=== PATIENT | male | born 1970 | race Caucasian/White ===

== ENCOUNTER → 2019-04-07 16:37 | Outpatient (CLI) | payer BC, SELFPAY ==
[2019-04-07 18:09] LABS: PSA,Total - Annual Screen 1.83 ng/mL (0.00-4.00)
== END ==
PROVIDERS: Family Provider Family Medicine; PCP Family Medicine; Referring Provider Family Medicine; Visit Provider Family Medicine
DX: Z80.42 Family history of malignant neoplasm of prostate (principal); Z12.5 Encounter for screening for malignant neoplasm of prostate
CPT/HCPCS: 36415; 84153; G0103

== ENCOUNTER → 2020-07-12 15:42 | Outpatient (CLI) | payer BC, SELFPAY ==
[2017-09-13 12:44] VITALS: BMI 25.1
--- NOTE | 2020-07-12 15:46 | RAD_ITS ---
STUDY: X-RAY - LEFT SHOULDER REASON FOR EXAM: Male, 49 years old. Pain along the top of the shoulder. No known injury. Avid golfer. TECHNIQUE: 4 view(s) of the shoulder. COMPARISON: None. FINDINGS: There is mild degenerative arthrosis of the glenohumeral articulation. Normal acromioclavicular joint. Normal acromion. There is no acute fracture, dislocation or destructive osseous pathology. Normal humeral head and visualized proximal humerus. The soft tissue structures are unremarkable. Normal visualized pulmonary apex. RAD/Shoulder min 2 Views IMPRESSION: Mild arthrosis left shoulder without acute fracture or subluxation. Electronically Signed: Mingo Decker DO at 23:56 EDT Tel [phone], Service support ,
[2020-07-12 18:23] LABS: Anion Gap 7 (5-15); BUN 14 mg/dL (7-18); BUN/Creat Ratio 14.4 RATIO (10-20); Calcium,Total 9.2 mg/dL (8.5-10.1); Chloride 105 mmol/L (98-107); Cholesterol 203 mg/dL (200); Creatinine, Serum 0.97 mg/dL (0.70-1.30); EST Glomerular Filtration Rate 88 mL/min (>60); Est Glom Filt Rate - Afr Amer 106 mL/min (>60); Glucose 88 mg/dL (74-106); High Density Lipoprotein 53 mg/dL; PSA,Total - Annual Screen 2.16 ng/mL (0.00-4.00); Sodium Level 140 mmol/L (136-145); Triglycerides 121 mg/dL; Very Low Density Lipoprotein 24 mg/dL (5-40)
== END ==
PROVIDERS: PCP Family Medicine; Referring Provider Family Medicine; Visit Provider Family Medicine
DX: Z00.00 Encounter for general adult medical examination without abnormal findings (principal); M77.8 Other enthesopathies, not elsewhere classified
CPT/HCPCS: 36415; 73030; 80048; 80061; 84153; G0103

== ENCOUNTER 2021-07-24 12:42 | Outpatient (CLI) | payer BC, SELFPAY ==
[2021-07-24 15:40] LABS: PSA,Total - Annual Screen 2.56 ng/mL (0.00-4.00)
== END 2021-07-24 23:59 | disposition home or self-care (01) ==
LOC: MTLAB 12:43
PROVIDERS: PCP Family Medicine; Referring Provider Family Medicine; Visit Provider Family Medicine
DX: Z00.00 Encounter for general adult medical examination without abnormal findings (principal); Z12.5 Encounter for screening for malignant neoplasm of prostate
CPT/HCPCS: 36415; 84153; G0103

== ENCOUNTER → 2021-10-15 | Outpatient (CLI) | payer BC, SELFPAY ==
--- NOTE | 2021-10-15 | IMM_PTH ---
PATIENT: JINA KWON LOC: [facility] U#:[id number] AGE/SX: 51/M ROOM: RE10/15/[address]: Dr. Mukund Douglas MD : 1970 BED: DIS: 10/15/2021 SPEC #: [id number] RECD: 10/17/21 12:50 STATUS: JERRY REQ #: [id number] FRANCHESKA: 10/15/21 00:[address]: Mukund Douglas DEPT: IMMUNOHISTOCHEMISTRY RECD BY: Mylene Myers ENTERED: 10/17/21 12:52 SP TYPE: IMMUNO OTHR DR: Dr. La López MD Tissues: A - PROSTATE RIGHT C - PROSTATE RIGHT D - PROSTATE LEFT E - PROSTATE LEFT Procedures: 34BE12 (add) P40 (add) 34BE12 (initial) PHYSICIAN & INSTITUTION [place] [phone] SPECIMEN INFORMATION: Tissue Source: A - Right apex, C - Right base, D - Left apex, E - Left mid Clinical Info: Elevated PSA Specimen Number: [id number] A, C, D & E CPT code: 12492, 78372 x7 METHODOLOGY: Deparaffinized sections of prefer/formalin-fixed tissue or PAP/DQ stained slides are incubated with monoclonal/polyclonal antibodies/oligonucleotide probes. Localization is made via biotin free immunoperoxidase method. Appropriate controls are performed and reacted as expected. Results on target cell population are indicated in the following table: RESULTS: ANTIBODY / CLONE RESULT Block A P40 (BC28) negative 34BE12 (34BE12) negative Block C P40 (BC28) positive 34BE12 (34BE12) positve Block D P40 (BC28) negative 34BE12 (34BE12) negative Block E P40 (BC28) negative 34BE12 (34BE12) negative These tests were developed and their performance characteristics determined by [facility]. They may not have been cleared or approved by the U.S. Food and Drug Administration. The FDA has determined that such clearance or approval is not necessary. The above immunohistochemical/dualISH markers are ordered and reviewed by the Pathologist. INTERPRETATION: A. Right prostate, apex, core biopsy: Focal atypical small acinar proliferation (VANGIE). C. Right prostate, base, core biopsy: Negative for malignancy. D. Left prostate, apex, core biopsy: Focal atypical small acinar proliferation (VANGIE). E. Left prostate, mid, core biopsy: Focal atypical small acinar proliferation (VANGIE). SJ:estiven 10/18/2021 Case has been reviewed in consultation with Dr. Brunson who concurs with the above diagnosis. IDC:AM
--- NOTE | 2021-10-15 08:00 | PROSBIL_PTH ---
PATIENT: JINA KWON LOC: [facility] U#:[id number] AGE/SX: 51/M ROOM: RE10/15/[address]: Dr. Mukund Douglas MD : 1970 BED: DIS: 10/15/2021 SPEC #: [id number] RECD: 10/15/21 16:21 STATUS: JERRY VIVAR #: [id number] FRANCHESKA: 10/15/21 08:[address]: Mukund Douglas DEPT: SURGICAL PATHOLOGY RECD BY: Dee Dee Shafer ENTERED: 10/16/21 07:11 SP TYPE: PROST BX KIRTI DR: Dr. La López MD Tissues: A - PROSTATE RIGHT B - PROSTATE RIGHT C - PROSTATE RIGHT D - PROSTATE LEFT E - PROSTATE LEFT F - PROSTATE LEFT Procedures: PROSTATE BX HEADER OPERATION: Prostate biopsy PRE-OP DIAGNOSIS: R97.20 TISSUE SUBMITTED: A - Right apex, B - Right mid, C - Right base, D - Left apex, E - Left mid, F - Left base MICROSCOPIC DIAGNOSIS A. Right prostate, apex, core biopsy: Focal atypical small acinar proliferation (VANGIE). See comment. B. Right prostate, mid, core biopsy: Prostatic tissue, negative for malignancy. C. Right prostate, base, core biopsy: Prostatic tissue, negative for malignancy. See comment. D. Left prostate, apex, core biopsy: Focal atypical small acinar proliferation (VANGEI). See comment. E. 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 See comment. F. Left prostate, base, core biopsy: Prostatic tissue, negative for malignancy. SJ:estiven 10/17/2021 COMMENT A, C, D & E - Immunohistochemistry ([id number]) supports the above diagnosis. Case has been reviewed in consultation with Dr. Brunson who concurs with the above diagnosis. IDC:AM MICROSCOPIC DESCRIPTION Slides are reviewed. GROSS DESCRIPTION A - Received is one container designated prostate, right apex. The specimen consists of two elongated fragments of light cisneros-white soft tissue each measuring 1.5 cm in length and 0.1 cm in diameter. The specimen is totally submitted in one cassette. B - Received is one container designated prostate, right mid. The specimen consists of two elongated fragments of light cisneros-white soft tissue measuring 0.8 and 1.5 cm in length and 0.1 cm in diameter. The specimen is totally submitted in one cassette. C - Received is one container designated prostate, right base. The specimen consists of two elongated fragments of light cisneros-white soft tissue measuring 0.7 and 1.2 cm in length and 0.1 cm in diameter. The specimen is totally submitted in one cassette. D - Received is one container designated prostate, left apex. The specimen consists of two elongated fragments of light cisneros-white soft tissue measuring 1.2 and 1.5 cm in length and 0.1 cm in diameter. The specimen is totally submitted in one cassette. E - Received is one container designated prostate, left mid. The specimen consists of two elongated fragments of light cisneros-white soft tissue each measuring 1.5 cm in length and 0.1 cm in diameter. The specimen is totally submitted in one cassette. F - Received is one container designated prostate, left base. The specimen consists of two elongated fragments of light cisneros-white soft tissue each measuring 1.5 cm in length and 0.1 cm in diameter. The specimen is totally submitted in one cassette. / SJ:rg 10/16/2021 TC:5 CPT: 82122 x6
== END | disposition home or self-care (01) ==
LOC: LABSPEC 16:29
PROVIDERS: PCP Family Medicine; Visit Provider Urology
DX: N42.32 Atypical small acinar proliferation of prostate (principal); R97.20 Elevated prostate specific antigen [PSA]
CPT/HCPCS: 88305; 88341; 88342; G0416

== ENCOUNTER 2022-03-20 16:13 | Outpatient (CLI) | payer BC, SELFPAY | END 2022-03-20 23:59 | disposition home or self-care (01) | LOC: MTLAB 16:14 | PROVIDERS: PCP Family Medicine; Referring Provider Registered Nurse; Visit Provider Registered Nurse | DX: R97.20 Elevated prostate specific antigen [PSA] (principal) | CPT/HCPCS: 36415; 84153 ==

== ENCOUNTER 2022-04-01 20:37 | Emergency (ER) | payer BC, SELFPAY ==
[2022-04-01 20:38] VITALS: PULSE 76; RESP 18; TEMP 36.6; O2SAT 97; BMI 26.6
[2022-04-01 20:42] VITALS: BP 109/73
--- NOTE | 2022-04-01 21:14 | EKG12_ITS ---
Test Reason : SYNCOPE Blood Pressure : / mmHG Vent. Rate : 060 BPM Atrial Rate : 060 BPM P-R Int : 134 ms QRS Dur : 100 ms QT Int : 398 ms P-R-T Axes : 068 048 034 degrees QTc Int : 398 ms Normal sinus rhythm Normal ECG Confirmed by MELVIN OWENS, RYDER ([id number]), publication editor HEMALATHA ANDRADE ([id number]) on 04/03/2022 11:53:45 AM Referred By: Confirmed By:RYDER CHARLES MD
[2022-04-01 21:16] VITALS: O2SAT 98
--- NOTE | 2022-04-01 21:19 | CT_ITS ---
INDICATION: seizure EXAMINATION: CT BRAIN - CT Head or Brain W/O Contrast Injection TECHNIQUE: Multiple axial images were obtained of the head without intravenous contrast. A radiation dose optimization technique was used for this scan. IV Contrast dosage and agent: None. COMPARISON: None FINDINGS: BRAIN PARENCHYMA: No intra- or extra-axial hemorrhage. No evidence of acute infarct. No intracranial mass or mass effect. There is preservation of the ramirez/white matter interface. Posterior fossa structures are unremarkable. CSF SPACES: Appropriate for age. No hydrocephalus. Basal cisterns are patent. CALVARIUM, SKULL BASE, PARANASAL SINUSES AND MASTOID AIR CELLS: Clear. No discrete lytic or blastic abnormalities. ORBITS: Both globes, extraocular muscles, optic nerves and retrobulbar fat appear unremarkable. CT/Brain/Head without Contrast IMPRESSION: No acute intracranial findings. Electronically Signed: Gal Doe MD at 22:09 EST ,
--- NOTE | 2022-04-01 21:20 | EDS_ITS ---
HPI History of Present Illness Chief Complaint: Syncope Detail of Chief Complaint: Passed out possible seizure. Informant: patient and spouse/S.O. Onset/Context/Timing Onset: Today Context: Sudden Onset Timing: Intermittent Current Severity: Gone Maximum Severity: Moderate Narrative Narrative: 51-year-old male no past medical or surgical history. Currently on no medications. Said he was sitting at the kitchen table he felt he might pass out when his came up to him she said he turned his head and his arm was shaking like he was having a seizure him to the ground. She stated maybe 10 to 20 seconds. He has never had a seizure before. Before the event he was not complaining of any headache nor chest pain or shortness of breath. No abdominal pain. Has not been recently ill. He is on a pretty strict diet rainout try to get in shape. He is lost 11 pounds over the last month and a half. He had not eaten dinner yet today. Denies any recent head injury. Prior similar symptoms: Yes Recent Illness/Hospitalization: No PFSH PFSH Medical History Anxiety Back pain Former smoker Home Medications naproxen sodium 220 mg capsule (Aleve) 220 mg PO BID 09/13/17 [History Last Taken Unknown] hydrocodone 7.5 mg-ibuprofen 200 mg tablet 1 tab PO DAILY PRN Pain 04/01/22 [History Last Taken Unknown] kehplsjgzwhm-wuhgzyrs-hcbguj tablet (Multivitamin 50 Plus tablet) 1 tab PO DAILY 04/01/22 [History Last Taken Unknown] Allergy/AdvReac Type Severity Reaction Status Date / Time cigarette smoke Allergy Unknown Verified 04/01/22 20:38 house dust mite Allergy Unknown Verified 04/01/22 20:38 Family History Father Cancer Surgical History H/O prostate biopsy Hx of knee surgery Social History Smoking Status: Former smoker alcohol intake: current alcohol intake frequency: 0-2 drinks per day ROS ROS ED ROS Narrative Denies recent illness. No palpitations. No chest pain. No headache. No abdominal pain. Review of Systems ROS Unobtainable: Denies due to encephalopathy Constitutional Constitutional ED: Denies chills or fever(s) Eyes Eyes: Denies blurry vision ENT ENT ED: Denies ear pain Cardiovascular Cardiovascular: Denies chest pain Respiratory/Chest Respiratory/Chest: Denies cough or dyspnea Gastrointestinal Gastrointestinal: Denies abdominal pain Genitourinary Genitourinary ED: Denies dysuria or hematuria Musculoskeletal Musculoskeletal: Denies arthralgias Integumentary Denies abscess or Abrasions Neurologic Neurologic: Denies headache(s) Psychiatric Psychiatric: Denies anxiety or depression Endocrine Endocrinology: Denies cold intolerance Hematologic/Lymphatic Hematologic/Lymphatic: Reports none Allergic/Immunologic Allergic/Immunologic ED: Denies mouth swelling or urticaria EXAM Physical Exam Narrative Exam Narrative: Well-appearing 51-year-old male. at bedside. Vital signs stable afebrile. Pulse ox 90% on room air no signs hypoxia. He clinically looks well. He does not look septic nor toxic nor dehydrated. Currently he is not postictal. He is awake and alert. H EENT exam unremarkable atraumatic. Pupils round reactive light. No facial droop. No trauma. Dentition intact. Tongue no bite avendano. Neck nontender no lymphadenopathy. No meningismus. Lungs clear to auscultation bilaterally. Heart regular rhythm no murmur. Abdomen soft nontender. Chest wall nontender. Abdomen soft nontender. Moving all 4 extremities. 5-5 borematic operator strength. Dorsi plantarflexion intact. Back nontender. Skin normal. Neurologic exam normal. NIH 0. He noticed day month and year. He knows where he is at. He is acting appropriately. He has normal speech. Const Vital Signs: 04/01/22 20:38 04/01/22 20:42 04/01/22 21:16 Temperature 97.9 F Temperature Source Temporal Pulse Rate 76 Respiratory Rate 18 Blood Pressure 109/73 Blood Pressure Mean 85 Pulse Ox 97 98 Oxygen Delivery Method Room Air Room Air Positive well nourished and well developed; Negative for obese, cachectic, contractures or unkempt General Appearance ED: well developed and NAD; Negative for unkempt, cachectic, contractures, cyanotic, diaphoretic or pallor Nutritional Appearance: Negative for cachectic or obese HEENT Reports moist mucous membranes; Denies dry mucous membranes Negative for trauma or tenderness Mouth ED: No dry mucous membranes Mouth: No dry mucous membranes Eyes PERRL and EOMs intact bilaterally General Eye ED: Negative for pale conjunctiva or scleral icterus Neck no lymphadenopathy, supple and no JVD General: Negative for tenderness Lymph Lymphatic: Negative for other Chest Wall inspection of chest normal and palpation of chest normal Chest: Negative for other Resp normal respiratory effort and clear to auscultation bilaterally Effort and Inspection: Negative for retractions Auscultation: Negative for rales, rhonchi or wheezes Cardio regular rate, regular rhythm, S1 normal heart sound, S2 normal heart sound and no murmurs Palpation: Negative for palpable S3 Rate: Negative for bradycardia Rhythm: Negative for abnormal rhythm GI normal to inspection, nondistended, normoactive bowel sounds, non-tender, non- distended and no masses Inspection: Negative for abdominal distention Palpation: soft; Negative for tender, guarding, splenomegaly, mass or rebound tenderness present Back/Spine no CVA tenderness General Back: Negative for CVA tenderness or other Cervical Spine: Negative for cervical spine tenderness Thoracic Spine / Upper Back: Negative for thoracic spinal tenderness or paraspinal muscle tenderness Lumbar Spine / Lower Back: Negative for lumbar spinal tenderness Extremity normal to inspection General Extremety ED: Negative for edema or tenderness General Extremity: Negative for edema Neuro oriented x3, CN's II-XII intact bilaterally and no sensory deficits noted Sensorium / Orientation: alert; Negative for orientation impaired, lethargic or stuporous Motor Exam: strength 5/5 throughout Psych mental status grossly normal Appearance: Negative for unkempt Attitude: No agitated Mood & Affect: Negative for depressed, anxious or tearful Skin no rashes or lesions noted, no wounds and skin turgor normal General Skin Exam: elasticity normal; Negative for jaundice or pallor Lesions: No lesion noted Rashes: No rashes noted Trauma: Negative for abrasion Wounds: Negative for wounds noted MDM MDM MDM Narrative Medical decision making narrative: 51-year-old male with a syncopal episode may or may not have had a seizure. It lasted very briefly. This could have been a myoclonic jerk also. His exam is benign. Repeat exam patient doing well at 10:45 PM. Lengthy discussion with his . He most likely had a syncopal episode. They both understand we do not have a specific cause. I discussed with him admission for further observation and cardiac monitoring and he does not want to stay. They will follow-up with his primary care physician. Repeat exam is normal. They understand the risk of a serious or fatal dysrhythmia. Lab Data Attestation: I reviewed the patient's lab results. Lab results narrative: CBC White count 1.4. H&H 14 and 42. Platelets 371. Electrolytes potassium 3.1 gap of 7 normal BUN 12 creatinine 1.1. Glucose 110. Troponin 12 glucose 94. Chest x-ray no acute process. CAT scan of his brain is read by the radiologist no acute process. Labs: Laboratory Results - last 24 hr 04/01/22 04/01/22 04/01/22 20:30 20:30 21:25 WBC 11.4 H RBC 4.41 L Hgb 14.2 Hct 42.7 MCV 96.8 H MCH 32.2 H MCHC 33.3 RDW Std Deviation 46.9 H RDW Coeff of Ilana 13.2 Plt Count 371 MPV 9.5 Immature Gran % (Auto) 0.500 Neut % (Auto) 50.0 Lymph % (Auto) 39.1 [place] % (Auto) 8.0 Eos % (Auto) 1.6 Baso % (Auto) 0.8 Absolute Neuts (auto) 5.7 Absolute Lymphs (auto) 4.44 Nucleated RBC % 0 Sodium 140 Potassium 3.3 L Chloride 105 Carbon Dioxide 28.0 Anion Gap 7 BUN 12 Creatinine 1.11 Estim Creat Clear Calc 79.62 Est GFR (MDRD) Af Amer 90 Est GFR (MDRD) Non-Af 74 BUN/Creatinine Ratio 10.8 Glucose 110 H Calcium 9.0 Troponin I High Sens 12 POC Glucose 94 Radiography Chest X-Ray - ED: 1 View, Read by ED Physician, Read by Radiologist, Heart, Lungs, Mediastinum, Bony Structures, No Acute Disease and Chronic Changes Diagnostic Testing: Clinical Impression(s) from Imaging Studies Brain CT 04/01/22 21:19 IMPRESSION: No acute intracranial findings. Electronically Signed: Gal Doe MD at 22:09 EST , Chest X-Ray 04/01/22 21:30 IMPRESSION: No radiographic evidence of acute cardiopulmonary disease. Electronically Signed: Gal Doe MD at 22:16 EST , Chest x-ray, portable, single view shows no acute abnormality. Normal cardiac silhouette mediastinum. CAT scan read by the radiologist and reviewed by me shows no acute abnormality. Rhythm Strip Rhythm Strip: Sinus Rhythm Rate: 60 Ectopy: None EKG Initial EKG: Attestation: I personally reviewed and interpreted this EKG as follows: Interpretation: Sinus Rhythm and No Acute Injury Pattern Comments: Normal sinus rhythm rate of 60 no acute signs of DC, ischemia or dysrhythmia. Normal EKG. Discharge Plan Triage Chief Complaint: Syncope ED Provider: Andre Schulz Dx/Rx/DC Orders Clinical Impression: Syncope Instructions: Causes of Syncope Prescriptions: No Action naproxen sodium [Aleve] 220 mg capsule 220 mg PO BID hydrocodone-ibuprofen 7.5-200 mg tablet 1 tab PO DAILY PRN (Reason: Pain) Label Comments: TAKE 1 TABLET BY MOUTH 4 TIMES DAILY FOR 7 DAYS Multivitamin 50 Plus Tablet 1 tab PO DAILY Primary Care Provider: La López Referrals: La López MD [Primary Care Provider] - As soon as possible Activity Restrictions/Additional Instructions: Plenty of fluids and rest. Make sure you eat something before you go to bed. No work or driving tomorrow. Call and follow-up with your primary care physician Dr. La López. Telemetry was seen in the emergency department she can see all of her test results. They may consider putting you on an event or Holter monitor to watch your heart rhythm. Return if worse. Disposition Disposition: Home, Self Care
[2022-04-01 21:26] LABS: Absolute Lymphocyte Count 4.44 X10^3/uL (0.83-4.51); Absolute Neutrophil Count 5.7 X10^3/uL (2.0-7.7); Basophil# 0.09 X10^3/uL; Basophil% 0.8 % (0-1); Eosinophil# 0.18 X10^3/uL; Eosinophils% 1.6 % (0-5); Hematocrit 42.7 % (40-54); Hemoglobin 14.2 g/dL (13.0-16.5); Lymphocyte # 4.44 X10^3/ul (0.83-4.51); Lymphocyte % 39.1 % (19-41); Mean Corp Hgb Conc 33.3 g/dL (32-36); Mean Corpuscular Hgb 32.2 pg (27.0-32.0); Mean Corpuscular Volume 96.8 fL (80-94); Mean Platelet Vol. 9.5 fl (6.2-12.0); Monocyte# 0.91 X10^3/uL; NRBC Flagged by Analyzer 0 % (0-5); Neutrophil # 5.68 X10^3/uL (2.7-7.7); Platelet Count 371 K/mm3 (150-450); RBC Distribution Width CV 13.2 % (11.6-14.6); RBC Distribution Width SD 46.9 fl (35.1-43.9); Red Blood Count 4.41 M/mm3 (4.6-6.2); White Blood Count 11.4 K/mm3 (4.4-11.0)
--- NOTE | 2022-04-01 21:30 | RAD_ITS ---
INDICATION: chest pain EXAMINATION/TECHNIQUE: X-RAY - portable upright AP chest x-ray COMPARISON: 03/13/2015 FINDINGS: LINES/DEVICES: None. LUNGS: No consolidation, edema or effusion. No pneumothorax. MEDIASTINUM AND CARDIOVASCULAR STRUCTURES: Cardiac silhouette not enlarged. Central airways and mediastinal contour are unremarkable. BONES AND SOFT TISSUES: Unremarkable. RAD/Chest 1 View (Portable) IMPRESSION: No radiographic evidence of acute cardiopulmonary disease. Electronically Signed: Gal Doe MD at 22:16 EST ,
[2022-04-01 21:45] LABS: Bedside Glucose 94 mg/dL (74-106)
[2022-04-01 21:53] LABS: Anion Gap 7 (5-15); BUN 12 mg/dL (7-18); BUN/Creat Ratio 10.8 RATIO (10-20); Chloride 105 mmol/L (98-107); Creatinine, Serum 1.11 mg/dL (0.70-1.30); EST Glomerular Filtration Rate 74 mL/min (>60); Est Glom Filt Rate - Afr Amer 90 mL/min (>60); Estimated Creatinine Clearance 79.62 ml/min; Glucose 110 mg/dL (74-106); Potassium 3.3 mmol/L (3.5-5.1); Sodium Level 140 mmol/L (136-145); Troponin-I HS 12 pg/mL (3.0-78.0)
[2022-04-01 23:31] VITALS: BP 136/57; PULSE 76; RESP 16; RESP 24; O2SAT 97
== END 2022-04-01 23:34 | disposition home or self-care (01) ==
PROVIDERS: Emergency Provider Emergency Medicine; PCP Family Medicine; Visit Provider Emergency Medicine
DX: R55 Syncope and collapse (principal); Z87.891 Personal history of nicotine dependence
CPT/HCPCS: 70450; 71045; 80048; 82962; 84484; 85025; 93005; 99285

== ENCOUNTER → 2022-07-15 | Outpatient (CLI) | payer BC, SELFPAY ==
--- NOTE | 2022-07-15 15:05 | ECHOD_ITS ---
Reason For Study: SYNCOPE Procedure This was a 2D Doppler, Color Flow transthoracic echocardiogram. Exam performed in department. Left Ventricle Normal LV size. Left ventricular systolic function is normal. The estimated ejection fraction is 65 %. No regional wall motion abnormalities noted. Right Ventricle Normal RV size. Normal systolic function. Atria Normal left atrium. Normal right atrium. Mitral Valve Normal mitral valve. Mild (1+) eccentric mitral valve insufficiency. Tricuspid Valve Normal tricuspid valve. Mild (1+) tricuspid valve insufficiency. Pulmonary artery systolic pressure is 26 mmHg. Aortic Valve Trisinus/trileaflet aortic valve. Pulmonic Valve Normal pulmonic valve. Great Vessels Normal aortic root. The pulmonary artery is normal size. Normal inferior vena cava. Pericardium/Pleural No pericardial effusion. MMode/2D Measurements & Calculations LVIDd: 4.9 cm IVSd: 0.90 cm Ao root diam: 3.1 cm LVIDs: 3.0 cm LVPWd: 1.0 cm RVDd: 3.3 cm FS: 37.9 % LAV(MOD-bp): 35.5 ml LVAd ap4: 31.2 cm2 SV(MOD-sp4): 68.8 ml LAV(MOD-bp) Indexed: 17.6 ml/m2 LVLd ap4: 7.7 cm LAV(MOD-sp2): 32.1 ml EDV(MOD-sp4): 105.5 ml LAV(MOD-sp4): 36.4 ml EDV(sp4-el): 107.0 ml LVAs ap4: 16.4 cm2 LVLs ap4: 6.1 cm ESV(MOD-sp4): 36.8 ml ESV(sp4-el): 37.3 ml EF(MOD-sp4): 65.1 % EF(sp4-el): 65.1 % SV(sp4-el): 69.7 ml LA A4 area: 15.1 cm2 LA dimension(2D): 3.5 cm RA A4 area: 14.2 cm2 Time Measurements MV dec time: 0.20 sec Doppler Measurements & Calculations MV E max sunday: 73.1 cm/sec Lat Peak E' Sunday: 14.0 cm/sec Med Peak E' Sunday: 11.8 cm/sec MV A max sunday: 69.3 cm/sec E/E' lat: 5.2 E/E' med: 6.2 MV E/A: 1.1 Ao V2 max: 144.6 cm/sec LV V1 max: 99.6 cm/sec PA V2 max: 119.9 cm/sec Ao max P.4 mmHg LV V1 max P.0 mmHg TR max sunday: 241.4 cm/sec TR max P.3 mmHg ECHO/Echo Complete Interpretation Summary Normal LV size. Left ventricular systolic function is normal. The estimated ejection fraction is 65 %. Mild (1+) eccentric mitral valve insufficiency. Mild (1+) tricuspid valve insufficiency. Ordering Physician: Juanjose Stahl Referring Physician: WIL GALLEGOS Performed By: Patricia Quintanilla RDCS
== END | disposition home or self-care (01) ==
PROVIDERS: PCP Family Medicine; Visit Provider Internal Medicine Cardiovascular Disease
DX: R55 Syncope and collapse (principal)
CPT/HCPCS: 93306

== ENCOUNTER → 2022-07-26 | Outpatient (CLI) | payer BC, SELFPAY ==
[2022-07-26 13:20] LABS: Cholesterol 205 mg/dL (200); High Density Lipoprotein 58 mg/dL; Triglycerides 62 mg/dL; Very Low Density Lipoprotein 12 mg/dL (5-40)
== END | disposition home or self-care (01) ==
PROVIDERS: PCP Family Medicine; Referring Provider Family Medicine; Visit Provider Family Medicine
DX: Z00.00 Encounter for general adult medical examination without abnormal findings (principal)
CPT/HCPCS: 36415; 80061

== ENCOUNTER 2022-08-30 10:47 | Outpatient (CLI) | payer BC, SELFPAY | END 2022-08-30 23:59 | disposition home or self-care (01) | LOC: MTLAB 10:48 | PROVIDERS: PCP Family Medicine; Referring Provider Family Medicine; Visit Provider Family Medicine | DX: Z00.00 Encounter for general adult medical examination without abnormal findings (principal); Z80.42 Family history of malignant neoplasm of prostate | CPT/HCPCS: 36415; 84153; G0103 ==

== ENCOUNTER → 2022-12-26 | Outpatient (CLI) | payer BC, SELFPAY ==
[2022-12-26 17:47] LABS: Erythrocyte Sedimentation Rate 14 mm/hr (0-20)
[2022-12-26 17:49] LABS: Absolute Lymphocyte Count 2.59 X10^3/uL (0.83-4.51); Absolute Neutrophil Count 4.8 X10^3/uL (2.0-7.7); Basophil# 0.09 X10^3/uL; Basophil% 1.1 % (0-1); Eosinophil# 0.17 X10^3/uL; Hematocrit 49.6 % (40-54); Hemoglobin 16.1 g/dL (13.0-16.5); Lymphocyte # 2.59 X10^3/ul (0.83-4.51); Lymphocyte % 30.7 % (19-41); Mean Corp Hgb Conc 32.5 g/dL (32-36); Mean Corpuscular Hgb 32.3 pg (27.0-32.0); Mean Corpuscular Volume 99.6 fL (80-94); Mean Platelet Vol. 9.6 fl (6.2-12.0); Monocyte% 8.3 % (0-10); NRBC Flagged by Analyzer 0 % (0-5); Neutrophil # 4.84 X10^3/uL (2.7-7.7); Neutrophil % 57.4 % (47-70); Platelet Count 405 K/mm3 (150-450); RBC Distribution Width CV 12.8 % (11.6-14.6); RBC Distribution Width SD 47.5 fl (35.1-43.9); Red Blood Count 4.98 M/mm3 (4.6-6.2); White Blood Count 8.4 K/mm3 (4.4-11.0)
[2022-12-26 18:33] LABS: Amylase 88 U/L (25-115); Lipase 42 U/L (13-75)
== END | disposition home or self-care (01) ==
LOC: MTLAB 14:50
PROVIDERS: PCP Family Medicine; Visit Provider Family Medicine
DX: R10.9 Unspecified abdominal pain (principal); R19.7 Diarrhea, unspecified
CPT/HCPCS: 36415; 82150; 83690; 85025; 85652

== ENCOUNTER 2022-12-28 09:45 | Outpatient (CLI) | payer BC, SELFPAY | END 2022-12-28 23:59 | disposition home or self-care (01) | LOC: LABSPEC 09:47 | PROVIDERS: PCP Family Medicine; Referring Provider Family Medicine; Visit Provider Family Medicine | DX: R19.7 Diarrhea, unspecified (principal) | CPT/HCPCS: 87177; 87209; 87493; 87506 ==

== ENCOUNTER → 2023-03-20 | Outpatient (CLI) | payer BC, SELFPAY ==
[2023-03-20 15:56] LABS: PSA,Total- Diagnostic 2.98 ng/mL (0.0-4.0)
== END | disposition home or self-care (01) ==
LOC: LAB 14:58
PROVIDERS: PCP Family Medicine; Referring Provider Urology; Visit Provider Urology
DX: R97.20 Elevated prostate specific antigen [PSA] (principal)
CPT/HCPCS: 36415; 84153

== ENCOUNTER → 2023-08-25 | Outpatient (CLI) | payer BC, SELFPAY ==
[2023-08-25 17:56] LABS: Thyroid Stim Hormone (TSH) 1.78 uIU/mL (0.358-3.74)
== END | disposition home or self-care (01) ==
PROVIDERS: PCP Family Medicine; Referring Provider Family Medicine; Visit Provider Family Medicine
DX: R19.7 Diarrhea, unspecified (principal)
CPT/HCPCS: 36415; 84443

== ENCOUNTER → 2024-02-17 | Outpatient (CLI) | payer BC, SELFPAY ==
[2024-02-17 18:52] LABS: PSA,Total- Diagnostic 3.02 ng/mL (0.0-4.0)
== END | disposition home or self-care (01) ==
LOC: MTLAB 14:39
PROVIDERS: PCP Family Medicine; Referring Provider Urology; Visit Provider Urology
DX: R97.20 Elevated prostate specific antigen [PSA] (principal)
CPT/HCPCS: 36415; 84153

== ENCOUNTER → 2024-09-28 | Outpatient (CLI) | payer BC, SELFPAY ==
[2024-09-28 10:31] LABS: Absolute Lymphocyte Count 2.83 X10^3/uL (0.83-4.51); Absolute Neutrophil Count 4.6 X10^3/uL (2.0-7.7); Basophil# 0.09 X10^3/uL; Eosinophil# 0.23 X10^3/uL; Eosinophils% 2.7 % (0-5); Hematocrit 45.1 % (40-54); Hemoglobin 15.3 g/dL (13.0-16.5); Lymphocyte # 2.83 X10^3/ul (0.83-4.51); Lymphocyte % 32.7 % (19-41); Mean Corp Hgb Conc 33.9 g/dL (32-36); Mean Corpuscular Hgb 32.7 pg (27.0-32.0); Mean Corpuscular Volume 96.4 fL (80-94); Mean Platelet Vol. 9.5 fl (6.2-12.0); Monocyte# 0.87 X10^3/uL; Monocyte% 10.1 % (0-10); NRBC Flagged by Analyzer 0 % (0-5); Neutrophil # 4.55 X10^3/uL (2.7-7.7); Neutrophil % 52.6 % (47-70); Platelet Count 384 K/mm3 (150-450); RBC Distribution Width CV 13.1 % (11.6-14.6); RBC Distribution Width SD 46.1 fl (35.1-43.9); Red Blood Count 4.68 M/mm3 (4.6-6.2); White Blood Count 8.7 K/mm3 (4.4-11.0)
[2024-09-28 11:07] LABS: ALB/GLOB Ratio 1.7 RATIO (0.9-2.4); AST(SGOT) 28 U/L (<=37); Alanine Aminotransfer ALT/SGPT 42 U/L (<=46); Albumin, Serum 4.3 g/dL (3.5-5.0); Alkaline Phosphatase 34 U/L (40-129); Anion Gap 12 (5-15); BUN 17 mg/dL (4-19); BUN/Creat Ratio 16.6 RATIO (10-20); Calcium,Total 9.1 mg/dL (7.6-11.0); Carbon Dioxide 22.5 mmol/L (21.0-32.0); Chloride 105 mmol/L (98-108); Cholesterol 234 mg/dL (<=200); Creatinine, Serum 1.01 mg/dL (0.70-1.20); EST Glomerular Filtration Rate 89 (>60); Globulin 2.6 g/dL (2.2-4.2); Glucose 118 mg/dL (70-99); High Density Lipoprotein 39 mg/dL; Low Density Lipoprotein Calc. 160 mg/dL; PSA,Total - Annual Screen 2.28 ng/mL (0.02-4.00); Potassium 4.2 mmol/L (3.3-5.1); Protein, Total 6.9 g/dL (5.9-8.4); Sodium Level 139 mmol/L (133-145); Total Bilirubin 0.43 mg/dL (0.00-1.30); Triglycerides 177 mg/dL; Very Low Density Lipoprotein 35 mg/dL (5-40); Vitamin D,25 Hydroxy 38.1 ng/mL (30-100); cholesterol:hdl ratio screen 5.98
[2024-09-29 13:43] LABS: Hemoglobin A1c 6.3 % (<=5.6)
== END | disposition home or self-care (01) ==
LOC: MTLAB 08:47
PROVIDERS: PCP Family Medicine; Referring Provider Family Medicine; Visit Provider Family Medicine
DX: R73.09 Other abnormal glucose (principal); Z13.220 Encounter for screening for lipoid disorders; Z85.46 Personal history of malignant neoplasm of prostate; Z13.1 Encounter for screening for diabetes mellitus; R53.83 Other fatigue
CPT/HCPCS: 36415; 80053; 80061; 82306; 83036; 84153; 85025; G0103

== ENCOUNTER → 2024-12-31 | Outpatient (CLI) | payer BC, SELFPAY | END | disposition home or self-care (01) | LOC: MTLAB 15:32 | PROVIDERS: PCP Family Medicine; Referring Provider Family Medicine; Visit Provider Family Medicine | DX: R73.09 Other abnormal glucose (principal) | CPT/HCPCS: 36415; 83036 ==